=== PATIENT | male | born 1970 | race Caucasian/White ===

== ENCOUNTER 2022-06-11 19:02 | Emergency (ER) ==
[2022-06-11] MEDS ORDERED: HYDROmorphone 0.5 MG/0.5 ML SYRINGE ONE ×2 (20:38→21:40)
[2022-06-11] MEDS ORDERED: methylPREDNISolone Sod Succ/PF 125 MG/2 ML VIAL ONE (20:38)
== END 2022-06-11 22:36 | disposition home or self-care (01) ==
LOC: ERS 19:02
DX: S16.1XXA Strain of muscle, fascia and tendon at neck level, initial encounter (principal); I10 Essential (primary) hypertension; Z79.899 Other long term (current) drug therapy; X58.XXXA Exposure to other specified factors, initial encounter
CPT/HCPCS: 96374; 96375; 96376; J1170; J2930

== ENCOUNTER 2022-06-15 09:00 | Inpatient (IN) | payer OTHER ==
[2022-06-15 11:28] VITALS: BMI 30.7
[2022-06-18 11:16] LABS: SARS-CoV-2 NAA Rapid Test Not Detected (NotDetected)
[2022-06-18] MEDS ORDERED: SUGAMMADEX SODIUM 200 MG/2 ML VIAL ONE (13:15)
[2022-06-18] MEDS ORDERED: fentaNYL PF 100 MCG/2 ML SYRINGE ONE ×2 (13:15→14:51)
[2022-06-18] MEDS ORDERED: CEFAZOLIN 2 GM VIAL ONE (13:28)
[2022-06-18] MEDS ORDERED: Sodium Chloride 0.9% 100 ML ONE (13:28)
[2022-06-18] MEDS ORDERED: Lidocaine 2% 6 ML SYR ONE (13:30)
[2022-06-18] MEDS ORDERED: Rocuronium Bromide 10 MG/ML (10ML VIAL) ONE (13:40)
[2022-06-18] MEDS ORDERED: PROPOFOL 200 MG/20 ML VIAL ONE (13:40)
[2022-06-18] MEDS ORDERED: Dexamethasone 20 MG/5 ML VIAL ONE (13:40)
[2022-06-18] MEDS ORDERED: Ketorolac Tromethamine 30 MG/ML VIAL ONE (13:40)
[2022-06-18] MEDS ORDERED: Ondansetron PF 4 MG/2 ML Vial ONE (13:40)
[2022-06-18] MEDS ORDERED: FENTANYL 50 MCG/ML 1 ML VIAL ONE ×2 (15:08→15:21)
[2022-06-18] MEDS ORDERED: HYDROcodone/Acetaminophen 5/325 mg Tablet ONE (15:38)
== END 2022-06-18 16:15 | disposition home or self-care (01) | DRG 473 ==
LOC: EDSTATUS 06-18 09:00 → SURG A 06-18 09:07
PROVIDERS: ADMIT Neurological Surgery; ATTEND Neurological Surgery
PROC: 0RG10A0 Fusion of Cervical Vertebral Joint with Interbody Fusion Device, Anterior Approach, Anterior Column, Open Approach (ICD-10-PCS; principal; 2022-06-18)
PROC: 0RB30ZZ Excision of Cervical Vertebral Disc, Open Approach (ICD-10-PCS; 2022-06-18)
PROC: 0RP104Z Removal of Internal Fixation Device from Cervical Vertebral Joint, Open Approach (ICD-10-PCS; 2022-06-18)
DX: M50.123 Cervical disc disorder at C6-C7 level with radiculopathy (principal); Z20.822 Contact with and (suspected) exposure to COVID-19; I10 Essential (primary) hypertension; E66.9 Obesity, unspecified; Z90.49 Acquired absence of other specified parts of digestive tract; Z79.899 Other long term (current) drug therapy; Z88.1 Allergy status to other antibiotic agents; Z68.30 Body mass index [BMI] 30.0-30.9, adult
CPT/HCPCS: C1713; J3010; J3490; U0002

== ENCOUNTER 2022-07-17 12:24 | Outpatient (CLI) | payer OTHER | END 2022-07-17 12:25 | disposition home or self-care (01) | LOC: TBSIIMAG 12:24 | PROVIDERS: ATTEND Neurological Surgery | DX: M47.22 Other spondylosis with radiculopathy, cervical region (principal); Z98.1 Arthrodesis status | CPT/HCPCS: 72040 ==

== ENCOUNTER 2022-09-20 12:42 | Outpatient (CLI) | payer OTHER | END 2022-09-20 12:43 | disposition home or self-care (01) | LOC: TBSIIMAG 12:42 | PROVIDERS: ATTEND Neurological Surgery | DX: M50.20 Other cervical disc displacement, unspecified cervical region (principal) | CPT/HCPCS: 72040 ==